=== PATIENT | female | born 1960 | race African-American/Black ===

== ENCOUNTER 2018-07-31 10:38 | Inpatient (IN) ==
[2018-07-31 11:49] LABS: Basophils % 0.3 % (0.0-0.8); Hematocrit 32.2 VOL% (35.7-47.0); Hemoglobin 10.9 GM/DL (12.0-16.0); Immature Granulocytes % 0.3 %; Immature Granulocytes Absolute 0.02 #; Lymphocytes # 2.1 10*3/uL (1.4-4.0); Lymphocytes % 33.4 % (21.3-54.2); Mean Corpuscular HGB Conc 33.9 GM/DL (32-36); Mean Corpuscular Hemoglobin 32 PG (27-34); Mean Corpuscular Volume 94.4 FL (87-102); Mean Platelet Volume 8.4 FL (9.6-12.0); Monocytes # 0.4 10*3/uL (0.11-0.8); Neutrophils # 3.7 10*3/uL (1.4-7.4); Platelet Count 226 T/CUMM (130-400); Red Blood Count 3.41 MC/CUMM (3.8-5.5); Red Cell Distribution Width 12.5 % (9.3-17.3); White Blood Count 6.2 T/CUMM (4-12)
[2018-07-31 12:16] LABS: Calcium 8.7 MG/DL (8.5-10.1); Osmolality,Calculated 266.1 MOS/KG (273-304); Potassium 3.6 MMOL/L (3.5-5.1)
[2018-07-31] MEDS ORDERED: HYDROmorphone 2 MG/1 ML VIAL IV STA (12:41)
[2018-07-31] MEDS ORDERED: ONDANSETRON 4 MG/2 ML VIAL IV STA (12:41)
[2018-07-31 12:51] LABS: Sedimentation Rate-Westergren 46 MM/HR (0-30)
[2018-07-31 13:15] LABS: Apearance,Urine CLEAR (Clear); Bacteria,Urine Few /HPF (Few); Bilirubin,Urine Negative (Negative); Blood, Urine Negative (Negative); Glucose,Urine (UA) Negative (Negative); Ketones,Urine Negative (Negative); Mucus,Urine Occasional /LPF (Occasional); Nitrite,Urine Positive (Negative); Protein,Urine Negative; Urine Color Yellow (Yellow); Urine Specific Gravity 1.006 (1.001-1.035); Urine Urobilinogen < 2.0 EU/DL (0.2-1.0); WBC,Urine <1 /HPF (0-6)
[2018-07-31] MEDS ORDERED: ceFAZolin 1,000 MG VIAL ONE (14:44)
[2018-07-31] MEDS ORDERED: ONDANSETRON 4 MG/2 ML VIAL ONE (16:03)
[2018-07-31] MEDS ORDERED: MIDAZOLAM 2 MG/2 ML VIAL ONE (16:03)
[2018-07-31] MEDS ORDERED: SEVOFLURANE 1 UNIT/15 MINUTE INH ONE (16:03)
[2018-07-31] MEDS ORDERED: fentaNYL 100 MCG/2 ML VIAL ONE (16:03)
[2018-07-31] MEDS ORDERED: PROPOFOL 200 MG/20 ML VIAL IV ONE (16:03)
[2018-07-31] MEDS ORDERED: GLYCOPYRROLATE 0.4 MG/2 ML VIAL ONE (16:03)
[2018-07-31] MEDS ORDERED: LACTATED RINGERS 1,000 ML IV ONE (16:04)
[2018-07-31] MEDS ORDERED: NEOSTIGMINE 10 MG/10 ML VIAL ONE (16:04)
[2018-07-31] MEDS ORDERED: ROCURONIUM 100 MG/10 ML VIAL IV ONE (16:04)
[2018-07-31] MEDS ORDERED: PHENYLEPHRINE 1 MG/10 ML SYRINGE IV ONE (16:04)
[2018-07-31] MEDS: oxyCODONE/ACETAMINOPHEN 5-325 MG TABLET PO PRN ×2 (17:24→21:49)
[2018-08-01] MEDS: oxyCODONE/ACETAMINOPHEN 5-325 MG TABLET PO PRN ×2 (08:56→20:31)
[2018-08-02] MEDS: oxyCODONE/ACETAMINOPHEN 5-325 MG TABLET PO PRN (14:24)
[2018-08-02] MEDS: ASPIRIN EC 325 MG TABLET PO SCH (18:29)
[2018-08-03] MEDS: ASPIRIN EC 325 MG TABLET PO SCH (08:54)
[2018-08-03 11:52] VITALS: BP 91/57
== END 2018-08-03 12:00 | disposition home health service (06) | DRG 482 ==
LOC: EDUNIT# → EDBD → N.ED 10:38 → N.EDINP 12:49 → N.3E 13:34
PROVIDERS: ADMIT Orthopaedic Surgery; ATTEND Orthopaedic Surgery